=== PATIENT | female | born 1950 | race American Indian/Alaskan Native ===

== ENCOUNTER 2020-07-18 15:15 | Emergency (ER) | payer BC, MEDICARE ==
[2020-07-18 18:32] VITALS: BP 132/74
== END 2020-07-18 17:15 | disposition left against medical advice (07) ==
LOC: ED 15:15
DX: R73.9 Hyperglycemia, unspecified (principal); Z53.21 Procedure and treatment not carried out due to patient leaving prior to being seen by health care provider
CPT/HCPCS: 82962